=== PATIENT | male | born 1960 | race Hispanic/Latino ===

== ENCOUNTER 2020-12-28 19:37 | Emergency (ER) | payer BC, OTHER ==
[~2020-12-28] VITALS: Ht 170.2 cm; Wt 64.0 kg
[~2020-12-28 19:37] MED LIST: HYDROCODONE; NAPROXEN; VITAMIN D
[2020-12-28] MEDS ORDERED: CLONIDINE HCL 0.1 MG TAB PO ONE (20:30)
[2020-12-28] MEDS ORDERED: HYDROCHLOROTHIA25 MG PO (21:24)
== END 2020-12-28 22:26 | disposition home or self-care (01) ==
LOC: ER 20:25
DX: I10 Essential (primary) hypertension (principal)
CPT/HCPCS: 99282

== ENCOUNTER 2022-12-08 08:30 | Emergency (ER) | payer BC ==
[~2022-12-08] VITALS: Ht 170.2 cm; Wt 74.8 kg
[~2022-12-08 08:30] MED LIST changes: +HYDROCHLOROTHIA25 MG PO
[2022-12-08] MEDS ORDERED: SODIUM CHLORIDE 0.9% 1000ML 1,000 ML IV STA (08:52)
[2022-12-08] MEDS ORDERED: MECLIZINE HCL 12.5 MG TAB PO ONE (09:00)
[2022-12-08 09:15] LABS: BASOPHILS % 0.5 % (0.0-1.0); EOSINOPHILS # (AUTO) 0.1 (0.0-0.4); EOSINOPHILS % 2.4 % (0.0-6.0); HEMATOCRIT 43.7 % (38.2-49.6); HEMOGLOBIN 14.6 g/dL (14.0-18.0); LYMPHOCYTES # (AUTO) 1.4 (1.0-3.2); MEAN CORPUSCULAR HGB CONC 33.4 g/dL (31-35); MEAN CORPUSCULAR VOLUME 89.9 fL (81-99); MONOCYTES # (AUTO) 0.4 (0.2-0.8); MONOCYTES % 6.1 % (4.4-11.3); NEUTROPHILS # (AUTO) 3.9 (2.1-6.9); NEUTROPHILS % 66.8 % (38.7-80.0); PLATELET COUNT 126 x10e3/uL (140-360); RED BLOOD COUNT 4.86 x10e6/uL (4.3-5.7); RED CELL DISTRIBUTION WIDTH 13.4 % (11.7-14.4)
[2022-12-08] MEDS ORDERED: DIAZEPAM 2 MG TAB PO ONE (09:15)
[2022-12-08 09:25] LABS: ALANINE AMINOTRANSFERASE 19 IU/L (0-55); ALBUMIN 3.8 g/dL (3.5-5.0); ALBUMIN/GLOBULIN RATIO 1.1 (0.8-2.0); ALKALINE PHOSPHATASE 39 IU/L (40-150); ANION GAP 11.3 mmol/L (8-16); BLOOD UREA NITROGEN 16 mg/dL (7-26); BUN/CREATININE RATIO 18 (6-25); CALCIUM 8.8 mg/dL (8.4-10.2); CARBON DIOXIDE 23 mmol/L (22-29); CHLORIDE 111 mmol/L (98-107); CREATININE, SERUM 0.87 mg/dL (0.72-1.25); GLUCOSE 109 mg/dL (74-118); POTASSIUM 4.3 mmol/L (3.5-5.1); SODIUM 141 mmol/L (136-145)
[2022-12-08 10:33] VITALS: BP 140/89; PULSE 79; RESP 18; TEMP 97.7; O2SAT 99
== END 2022-12-08 10:44 | disposition home or self-care (01) ==
LOC: ER 08:34
DX: H81.399 Other peripheral vertigo, unspecified ear (principal); I10 Essential (primary) hypertension; E78.5 Hyperlipidemia, unspecified
CPT/HCPCS: 36415; 70450; 71045; 80053; 83735; 84484; 85025; 99284; J7030; J8597